=== PATIENT | female | born 1980 | race Caucasian/White ===

== ENCOUNTER 2017-06-25 23:41 | Emergency (ER) | payer MEDICAID ==
[~2017-06-25] VITALS: Ht 167.6 cm; Wt 101.8 kg
[~2017-06-25 23:41] MED LIST: SERT100T1 PO
[2017-06-25 23:50] VITALS: BP 143/80
--- NOTE | 2017-06-26 00:25 | NUR ---
PT.AMBULATED TO ER [facility]
--- NOTE | 2017-06-26 00:33 | NUR ---
37Y F BIB SELF C/O EPIGASTRIC PAIN X 1 DAY. PT STATES PAIN IS 8/10. PT DENIES ANY N/V/D, SOB, CP AT THE MOMENT. PT HAS NO MED HX AND NKA. PT AMBULATED TO CHAIR E WITH STEADY GAIT.
[2017-06-26 00:50] LABS: APPEARANCE,URINE SL CLOUDY (CLEAR); BILIRUBIN,URINE NEGATIVE (NEGATIVE); BLOOD, URINE NEGATIVE (NEGATIVE); COLOR,URINE YELLOW (YELLOW); LEUKOCYTE ESTERASE ,URINE NEGATIVE (NEGATIVE); NITRITE, URINE NEGATIVE (NEGATIVE); UGLUCOSE NEGATIVE (NEGATIVE)
[2017-06-26 00:59] LABS: BASOPHILS # (AUTO) 0.3 K/uL (0.00-0.22); EOSINOPHILS # (AUTO) 0.2 K/uL (0-0.4); EOSINOPHILS % (AUTO) 2.3 % (0.0-4.0); HEMATOCRIT 31.2 % (36-48); HEMOGLOBIN 9.3 g/dL (12.0-16.0); LYMPHOCYTES # (AUTO) 2.8 K/uL (2.5-16.5); LYMPHOCYTES % (AUTO) 33.4 % (20.5-51.1); MEAN CORPUSCULAR HEMOGLOBIN 20 pg (27-31); MEAN CORPUSCULAR HGB CONC 30 g/dL (33-37); MONOCYTES # (AUTO) 0.5 K/uL (0.8-1.0); MONOCYTES % (AUTO) 5.9 % (1.7-9.3); NEUTROPHILS # (AUTO) 4.6 K/uL (1.8-7.7); NEUTROPHILS % (AUTO) 54.4 % (42.2-75.2); PLATELET COUNT (AUTO) 351 K/uL (140-450); RED BLOOD CELL COUNT(AUTO) 4.73 MIL/uL (4.20-5.40); RED CELL DISTRIBUTION WIDTH 20.2 % (11.6-13.7); WHITE BLOOD COUNT (AUTO) 8.4 K/uL (4.8-10.8)
--- NOTE | 2017-06-26 01:20 | NUR ---
Patient being evaluated by at bedside.
[2017-06-26] MEDS ORDERED: ALUMINUM HYD/MAG/SIMETHICONE 30 ML UDC PO ONE (01:25)
[2017-06-26] MEDS ORDERED: LIDOCAINE VISCOUS 2% 20 ML UDC PO ONE (01:25)
[2017-06-26] MEDS ORDERED: DICYCLOMINE HCL LIQUID 10 MG/5 ML UDC PO ONE (01:25)
[2017-06-26 02:30] VITALS: BP 127/86
--- NOTE | 2017-06-26 02:30 | NUR ---
Patient discharged with v/s stable. Written and verbal after care instructions given and explained. Patient alert, oriented and verbalized understanding of instructions. Ambulatory with steady gait. All questions addressed prior to discharge. ID band removed. Patient advised to follow up with PMD. Rx of MAALOX given. Patient educated on indication of medication including possible reaction and side effects. Opportunity to ask questions provided and answered.
[2017-06-26 10:55] LABS: ANION GAP 12.7 (8-16); CARBON DIOXIDE 27.8 mmol/L (21-32); POTASSIUM 4.5 mmol/L (3.5-5.1)
[2017-06-26 10:56] LABS: CREATININE 0.8 mg/dL (0.6-1.3); TOTAL BILIRUBIN 0.1 mg/dL (0.0-1.0)
[2017-06-26 10:57] LABS: ALBUMIN 3.3 g/dL (3.4-5.0)
== END 2017-06-26 02:30 | disposition home or self-care (01) ==
LOC: MED 23:41
DX: K29.70 Gastritis, unspecified, without bleeding (principal); Z79.899 Other long term (current) drug therapy
CPT/HCPCS: 36415; 80053; 81003; 81025; 82150; 83690; 84703; 85025; 99284

== ENCOUNTER 2018-03-19 10:34 | Emergency (ER) | payer SELFPAY ==
[~2018-03-19] VITALS: Ht 167.6 cm; Wt 95.3 kg
[2018-03-19 10:40] VITALS: BP 121/78
--- NOTE | 2018-03-19 10:45 | NUR ---
PT AMBULATED TO ER BED 01
--- NOTE | 2018-03-19 10:53 | NUR ---
C/O SEVERE SORE THROAT AND SWELLING UNABLE TO SWALLOW AND 'FEELS LIKE SHES GONNA SUFFACATE'. RIGHT EAR PAIN THAT RADIATES TO RIGHT JAW. PAIN 10/10 CONSTANT. PT STATES SHE CAME IN LAST SUNDAY AND WAS SEEN BUT LOST HER RX AND HAS NOT FILLED HER PRESCRIPTION. DENIES N/V/D; SKIN IS PINK/WARM/DRY; AAOX4 WITH EVEN AND STEADY GAIT; LUNGS CLEAR BL; HR EVEN AND REGULAR; PT DENIES ANY FEVER, CP, SOB, OR COUGH AT THIS TIME; VSS; PATIENT POSITIONED FOR COMFORT; HOB ELEVATED; BEDRAILS UP X2; BED DOWN. ER MD MADE AWARE OF PT STATUS.
--- NOTE | 2018-03-19 11:47 | NUR ---
DR MAYER AT BEDSIDE.
[2018-03-19] MEDS ORDERED: DEXAMETHASONE 10 MG/ML VIAL IM ONE (11:50)
[2018-03-19] MEDS ORDERED: IBUPROFEN CHILDRENS 100 MG/5 ML UDC PO ONE (11:50)
--- NOTE | 2018-03-19 12:15 | NUR ---
NO STATED NEEDS AT THIS TIME. STATES SHE IS FEELING A LITTLE BETTER.
--- NOTE | 2018-03-19 13:05 | NUR ---
Patient discharged with v/s stable. Written and verbal after care instructions given and explained. Patient alert, oriented and verbalized understanding of instructions. Ambulatory with steady gait. All questions addressed prior to discharge. ID band removed. Patient advised to follow up with PMD. Rx of PENICILLIN, NORCO given. Patient educated on indication of medication including possible reaction and side effects. Opportunity to ask questions provided and answered.
[2018-03-19 13:06] VITALS: BP 121/78
== END 2018-03-19 13:05 | disposition home or self-care (01) ==
LOC: MED 10:34
DX: J36 Peritonsillar abscess (principal); F17.210 Nicotine dependence, cigarettes, uncomplicated; E11.9 Type 2 diabetes mellitus without complications; Z79.899 Other long term (current) drug therapy
CPT/HCPCS: 96372; 99283; J1100